=== PATIENT | female | born 1990 | race Caucasian/White ===

== ENCOUNTER 2016-11-29 07:52 | Inpatient (IN) | payer OTHER ==
[~2016-11-29] VITALS: Ht 172.7 cm; Wt 84.0 kg
[~2016-11-29 07:52] MED LIST: PRENATAL ONE T1 EACH PO
--- NOTE | 2016-11-30 10:16 | PR ---
[facility] [address] [facility] [place], [place] [address] Signed PP Progress Notes Datetime Report Generated by VERONICAN: 11/30/2016 10:16 SUBJECTIVE: [id number] Pain: Within normal limits Pain Comments: Little sleep Vital Signs: [id number] Vital Signs: Reviewed; Within Normal Limits EXAM: [id number] Cardiovascular: Not Done Respiratory: Not Done Abdomen/Uterus: Abnormal Lochia: Normal Vulva/Perineum: Not Done Breasts: Not Done CVA Tenderness: Not Done Extremities: Normal Incision: Not Applicable Progress: Normal Exam Comments: Fundus firm, NT @ U-1. H/H 11.5/33.2, WBC 17.1, plat 215k IMPRESSION/PLAN/PROCEDURES: [id number] Impression: Normal progression Procedures: None Progress Notes: Doing well. She desires D/C home this pm. Signing Physician: Rupa Rodriguez MD CC: *Electronically Signed* 11/30/16 1016 RUPA RODRIGUEZ MD PATIENT NAME: LOREE GROSS PROGRESS NOTE DATE OF : 86 PHYSICIAN: RUPA RODRIGUEZ MD RPT #: [id number] REPORT IS CONFIDENTIAL AND NOT TO BE RELEASED WITHOUT AUTHORIZATION
== END 2016-11-30 19:35 | disposition home or self-care (01) | DRG 775 ==
LOC: FBC 07:52
PROVIDERS: ADMIT Obstetrics & Gynecology
PROC: 10E0XZZ Delivery of Products of Conception, External Approach (ICD-10-PCS; principal; 2016-11-29)
PROC: 0KQM0ZZ Repair Perineum Muscle, Open Approach (ICD-10-PCS; 2016-11-29)
DX: O14.94 Unspecified pre-eclampsia, complicating childbirth (principal); Z3A.37 37 weeks gestation of pregnancy; Z37.0 Single live birth; O69.1XX0 Labor and delivery complicated by cord around neck, with compression, not applicable or unspecified; O70.1 Second degree perineal laceration during delivery
CPT/HCPCS: 36415; 85027; J2590; J7120

== ENCOUNTER 2019-08-05 07:24 | Inpatient (IN) | payer OTHER ==
[~2019-08-05] VITALS: Ht 172.7 cm; Wt 85.0 kg
--- NOTE | 2019-08-05 12:21 | PR ---
[facility] [address] [facility] [place], [place] [address] Signed Progress Notes IP Datetime Report Generated by CPN: 08/05/2019 12:20 PROGRESS NOTES: [id number] Impression: Normal progression of labor; Reassuring heart rate Procedures: Artificial ROM; Sterile Vag Exam Plan: Continue present management Informed Consent Obtain: Vaginal Delivery; Induction of Labor; Risks, Benefits and Alternatives Discussed VITAL SIGNS: [id number] Vital Signs: Reviewed VS Notable Details: mild HTN EXAM: [id number] Dilatation: 3.5 Effacement: 70 Station: -2 Uterine Contractions: q 1 to 4 min MEMBRANES: [id number] Membrane Status: Intact Comments: Progressing well. Will continue. Fetus A: [id number] FHR Baseline: 125 Variability: Moderate 6-25bpm Accelerations: 15X15 Decelerations: None FHR Category: Category I Presentation: Vertex Comments on Fetus A: No evidence of metabolic acidosis Fetus B: [id number] Signing Physician: Rupa Rodriguez MD Copies: ~ *Electronically Signed* 08/05/19 1220 RUPA RODRIGUEZ MD PATIENT NAME: LOREE GROSS PROGRESS NOTE DATE OF : 86 PHYSICIAN: RUPA RODRIGUEZ MD RPT #: [id number] REPORT IS CONFIDENTIAL AND NOT TO BE RELEASED WITHOUT AUTHORIZATION
--- NOTE | 2019-08-06 07:43 | PR ---
[facility] [address] [facility] [place], [place] [address] Signed PP Progress Notes Datetime Report Generated by CPN: 08/06/2019 07:43 SUBJECTIVE: [id number] Pain: Within normal limits Nausea/Vomiting: Denies Vital Signs: [id number] Vital Signs: Reviewed Notable Details: intermittent mild HTN EXAM: [id number] Cardiovascular: Not Done Respiratory: Not Done Abdomen/Uterus: Abnormal Lochia: Normal Vulva/Perineum: Not Done Breasts: Not Done CVA Tenderness: Not Done Extremities: Normal Incision: Not Applicable Progress: Normal Exam Comments: Fundus firm, NT @ U-1. H/H 10.2/30.6, WBC 12.6, plat 166k IMPRESSION/PLAN/PROCEDURES: [id number] Impression: Normal progression Plan: Discharge Procedures: None Progress Notes: Doing well. She is ready for D/C. Signing Physician: Rupa Rodriguez MD Copies: ~ *Electronically Signed* 08/06/19 0743 RUPA RODRIGUEZ MD PATIENT NAME: GROSSLOREE PROGRESS NOTE DATE OF : 86 PHYSICIAN: RUPA RODRIGUEZ MD RPT #: [id number] REPORT IS CONFIDENTIAL AND NOT TO BE RELEASED WITHOUT AUTHORIZATION
== END 2019-08-06 17:15 | disposition home or self-care (01) | DRG 807 ==
LOC: FBC 07:24
PROVIDERS: ADMIT Obstetrics & Gynecology
PROC: 10E0XZZ Delivery of Products of Conception, External Approach (ICD-10-PCS; principal; 2019-08-05)
PROC: 0KQM0ZZ Repair Perineum Muscle, Open Approach (ICD-10-PCS; 2019-08-05)
PROC: 10907ZC Drainage of Amniotic Fluid, Therapeutic from Products of Conception, Via Natural or Artificial Opening (ICD-10-PCS; 2019-08-05)
PROC: 3E0P7VZ Introduction of Hormone into Female Reproductive, Via Natural or Artificial Opening (ICD-10-PCS; 2019-08-05)
DX: O14.04 Mild to moderate pre-eclampsia, complicating childbirth (principal); Z37.0 Single live birth; O69.82X0 Labor and delivery complicated by other cord entanglement, without compression, not applicable or unspecified; O70.1 Second degree perineal laceration during delivery; Z3A.39 39 weeks gestation of pregnancy
CPT/HCPCS: 36415; 82565; 82570; 84156; 84450; 84520; 84550; 85025; 85027; A9270; J2590; J7121

== ENCOUNTER 2022-04-05 06:23 | Inpatient (IN) | payer OTHER ==
[~2022-04-05] VITALS: Ht 172.7 cm; Wt 82.6 kg
--- NOTE | 2022-04-05 08:09 | NUR ---
COVID SWAB COLLECTED SENT TO THE LAB
--- NOTE | 2022-04-05 14:32 | PR ---
[facility] [address] [facility] [place], [place] [address] Signed Progress Notes IP Datetime Report Generated by CPN: 04/05/2022 14:32 PROGRESS NOTES: [id number] Impression: Normal Progression of Labor Procedures: Artificial ROM; Sterile Vag Exam Plan: Continue Present Management VITAL SIGNS: [id number] Vital Signs: Reviewed VS Notable Details: mild HTN EXAM: [id number] Dilatation: 4.0 Effacement: 70 Station: -2 Contractions: occ MEMBRANES: [id number] Comments: Progressing and farhan some after one Cytotec. Hopefully, AROM Will increase contractions. FETUS A: [id number] FHR Baseline: 130 Variability: Minimal - >Undetectable to <=5bpm Accelerations: 15X15 Decelerations: None FHR Category: Category II Presentation: Vertex Comments on Fetus A: previously reactive with mod variability FETUS B: [id number] Signing Physician: Rupa Rodriguez MD Copies: ~ *Electronically Signed* 04/05/22 1432 RUPA RODRIGUEZ MD PATIENT NAME: LOREE GROSS PROGRESS NOTE DATE OF : 86 PHYSICIAN: RUPA RODRIGUEZ MD RPT #: [id number] REPORT IS CONFIDENTIAL AND NOT TO BE RELEASED WITHOUT AUTHORIZATION
--- NOTE | 2022-04-05 18:51 | PR ---
[facility] [address] [facility] [place], [place] [address] Signed Progress Notes IP Datetime Report Generated by CPN: 04/05/2022 18:51 PROGRESS NOTES: [id number] Impression: Normal Progression of Labor Procedures: Sterile Vag Exam Plan: Continue Present Management VITAL SIGNS: [id number] Vital Signs: Reviewed VS Notable Details: mild HTN EXAM: [id number] Dilatation: 5.0 Effacement: 100 Station: -2 Contractions: occ MEMBRANES: [id number] Comments: More uncomfortalbe. Progressing. Will continue. FETUS A: [id number] FHR Baseline: 130 Variability: Minimal - >Undetectable to <=5bpm Accelerations: 15X15 Decelerations: None FHR Category: Category II Presentation: Vertex Comments on Fetus A: previously reactive with mod variability FETUS B: [id number] Signing Physician: Rupa Rodriguez MD Copies: ~ *Electronically Signed* 04/05/22 185 RUPA RODRIGUEZ MD PATIENT NAME: LOREE GROSS PROGRESS NOTE DATE OF : 86 PHYSICIAN: RUPA RODRIGUEZ MD RPT #: [id number] REPORT IS CONFIDENTIAL AND NOT TO BE RELEASED WITHOUT AUTHORIZATION
--- NOTE | 2022-04-06 09:52 | PR ---
[facility] [address] [place], [place] [address] Signed PP Progress Notes Datetime Report Generated by CPN: 04/06/2022 09:52 SUBJECTIVE: [id number] Pain: Within Normal Limits Pain Comments: cramping worse this time Vital Signs: [id number] Vital Signs: Reviewed Notable Details: single elevation of BP Cardiovascular: Not Done Respiratory: Not Done Abdomen/Uterus: Abnormal Lochia: Normal Vulva/Perineum: Not Done Breasts: Not Done CVA Tenderness: Not Done Extremities: Normal Incision: Not Applicable Progress: Normal Exam Comments: Fundus firm, NT @ U-2. H/H 11.2/33.3, WBC 15.9, plat 198k IMPRESSION/PLAN/PROCEDURES: [id number] Impression: Normal Progression Plan: Discharge Procedures: None Progress Notes: Doing well. She has had a single elevated BP but otherwise normal. I do feel she is safe for D/C later today. Signing Physician: Rupa Rodriguez MD Copies: ~ *Electronically Signed* 04/06/22 0952 RUPA RODRIGUEZ MD PATIENT NAME: LOREE GROSS PROGRESS NOTE DATE OF : 86 PHYSICIAN: RUPA RODRIGUEZ MD RPT #: [id number] REPORT IS CONFIDENTIAL AND NOT TO BE RELEASED WITHOUT AUTHORIZATION
== END 2022-04-06 19:10 | disposition home or self-care (01) | DRG 807 ==
LOC: FBC 06:23
PROVIDERS: ADMIT Obstetrics & Gynecology; ATTEND Obstetrics & Gynecology
PROC: 10E0XZZ Delivery of Products of Conception, External Approach (ICD-10-PCS; principal; 2022-04-05)
PROC: 0KQM0ZZ Repair Perineum Muscle, Open Approach (ICD-10-PCS; 2022-04-05)
PROC: 10907ZC Drainage of Amniotic Fluid, Therapeutic from Products of Conception, Via Natural or Artificial Opening (ICD-10-PCS; 2022-04-05)
PROC: 3E0P7VZ Introduction of Hormone into Female Reproductive, Via Natural or Artificial Opening (ICD-10-PCS; 2022-04-05)
DX: O13.4 Gestational [pregnancy-induced] hypertension without significant proteinuria, complicating childbirth (principal); Z37.0 Single live birth; O70.1 Second degree perineal laceration during delivery; Z20.822 Contact with and (suspected) exposure to COVID-19; Z3A.39 39 weeks gestation of pregnancy; Z67.40 Type O blood, Rh positive
CPT/HCPCS: 36415; 82565; 82570; 84156; 84450; 84520; 84550; 85027; 86850; 86900; 86901; 87502; A9270; C9803; U0003